=== PATIENT | female | born 1960 | race Caucasian/White ===

== ENCOUNTER 2018-06-07 02:54 | Inpatient (IN) | payer BC ==
[~2018-06-07] VITALS: Ht 175.3 cm; Wt 105.8 kg
[2018-06-07 06:31] VITALS: BP 142/82
[2018-06-07 08:41] VITALS: BP 129/57
[2018-06-07 08:44] LABS: ALBUMIN 3.4 g/dL (3.4-5.0); ALKALINE PHOSPHATASE 61 U/L (46-116); ALT/SGPT 23 U/L (14-59); AST/SGOT 12 U/L (15-37); BILIRUBIN TOTAL 0.3 mg/dL (0.20-1.00); CALCIUM 8.3 mg/dL (8.5-10.1); CARBON DIOXIDE 26.5 mmol/L (21-32); CHLORIDE SERUM 109 mmol/L (98-107); CHOLESTEROL 193 mg/dL (<200); CREATININE SERUM 0.9 mg/dL (0.6-1.0); GFR1 > 60 mL/min; GLUCOSE SERUM 127 mg/dL (74-106); MAGNESIUM 1.9 mg/dL (1.8-2.4); PHOSPHOROUS 3.6 mg/dL (2.5-4.9); POTASSIUM SERUM 4.6 mmol/L (3.5-5.1); SODIUM SERUM 144 mmol/L (136-145); TOTAL PROTEIN, SERUM 7.1 g/dL (6.4-8.2); TRIGLYCERIDES 49 mg/dL (<150)
[2018-06-07 08:46] LABS: CHOLESTEROL/HDL RATIO 2.8; HDL CHOLESTEROL 68 mg/dL (40-60)
[2018-06-07 08:51] LABS: BASOPHIL % 0.3 % (0-2); FREE T4 0.93 ng/dL (0.76-1.46); FREE THYROXINE INDEX 2.2 ug/dL (1.4-4.5); PLATELET COUNT 263 x10^3mcL (130-400); RED CELL DISTRIBUTION WIDTH 12.6 % (11.5-14.5); T4(THYROXINE) 6.1 ug/dL (4.7-13.3)
[2018-06-07 13:02] LABS: T3 TOTAL 1.02 ng/mL
[2018-06-07 16:45] VITALS: BP 121/68
[2018-06-07 20:56] VITALS: BP 151/84
[2018-06-07 21:51] LABS: UA SPECIFIC GRAVITY >=1.030 (1.005-1.035); microscopic required? YES; urine erythrocyte 1+ (NEGATIVE)
[2018-06-08 06:08] VITALS: BP 159/91
[2018-06-08 06:22] LABS: BASOPHIL % 0.4 % (0-2); PLATELET COUNT 232 x10^3mcL (130-400); RED CELL DISTRIBUTION WIDTH 12.8 % (11.5-14.5)
[2018-06-08 06:29] LABS: CALCIUM 8.6 mg/dL (8.5-10.1); CARBON DIOXIDE 27.8 mmol/L (21-32); CHLORIDE SERUM 108 mmol/L (98-107); GFR1 > 60 mL/min; GLUCOSE SERUM 100 mg/dL (74-106); POTASSIUM SERUM 4.5 mmol/L (3.5-5.1); SODIUM SERUM 144 mmol/L (136-145)
[2018-06-08 08:35] VITALS: BP 147/80
[2018-06-08 09:55] VITALS: Ht 175.3 cm; Wt 105.8 kg
[2018-06-08 17:00] VITALS: BP 149/72
[2018-06-08 20:45] VITALS: BP 125/64
[2018-06-09 05:09] VITALS: BP 148/77
[2018-06-09 06:39] LABS: PLATELET COUNT 200 x10^3mcL (130-400); RED CELL DISTRIBUTION WIDTH 12.2 % (11.5-14.5)
[2018-06-09 06:44] LABS: CALCIUM 7.8 mg/dL (8.5-10.1); CARBON DIOXIDE 23.5 mmol/L (21-32); CHLORIDE SERUM 108 mmol/L (98-107); GFR1 > 60 mL/min; GLUCOSE SERUM 107 mg/dL (74-106); POTASSIUM SERUM 3.8 mmol/L (3.5-5.1); SODIUM SERUM 141 mmol/L (136-145)
[2018-06-09 08:56] VITALS: BP 151/84
[2018-06-09] MEDS ORDERED: APAP/HYDROCODON1 T13 PO (13:41)
[2018-06-09 13:48] VITALS: BP 151/84
[2018-06-09 14:55] LABS: BAND NEUTROPHIL 0 % (0-10); BASOPHIL 0 % (0-2); MONOCYTE 5 % (0-7); SEGMENTED NEUTROPHILS 79 % (37-75)
[2018-06-09 14:56] LABS: PLATELET MORPHOLOGY PLATELETS NORMAL; rbc morphology (normal/abnorm) ABNORMAL (NORMAL)
== END 2018-06-09 14:28 | disposition home or self-care (01) | DRG 492 ==
LOC: ED 02:54 → MU 05:39
PROVIDERS: ADMIT Internal Medicine
PROC: 0QSJ04Z Reposition Right Fibula with Internal Fixation Device, Open Approach (ICD-10-PCS; principal; 2018-06-07)
PROC: 0QSG04Z Reposition Right Tibia with Internal Fixation Device, Open Approach (ICD-10-PCS; 2018-06-07)
PROC: 2W3RX1Z Immobilization of Left Lower Leg using Splint (ICD-10-PCS; 2018-06-07)
DX: S82.851A Displaced trimalleolar fracture of right lower leg, initial encounter for closed fracture (principal); N17.0 Acute kidney failure with tubular necrosis; D72.829 Elevated white blood cell count, unspecified; E78.5 Hyperlipidemia, unspecified; W01.0XXA Fall on same level from slipping, tripping and stumbling without subsequent striking against object, initial encounter; Z88.0 Allergy status to penicillin; Y93.89 Activity, other specified; Y92.89 Other specified places as the place of occurrence of the external cause; Y99.8 Other external cause status
CPT/HCPCS: 84439; 97110-GP; 97530-GP; C1713; J0690; J1644; J1885; J2001; J2060; J2175; J2250; J2270; J2405; J2704; J3010; J3490; J7030; Q0092